=== PATIENT | female | born 1980 | race Caucasian/White ===

== ENCOUNTER 2018-01-22 02:50 | Outpatient (CLI) | payer MEDICAID ==
[2018-01-22] MEDS ORDERED: TERBUTALINE 1 ML (03:49)
[2018-01-22] MEDS: LACTATED RINGER'S 1,000 ML IV ×2 (03:57→06:52)
[2018-01-22] MEDS: TERBUTALINE 1 MG/ML INJ SC ×2 (03:57→04:56)
== END 2018-01-22 08:33 | disposition home or self-care (01) ==
LOC: OBT 02:50 → L-D 02:50 → OBT 08:33
DX: O62.9 Abnormality of forces of labor, unspecified (principal); O09.523 Supervision of elderly multigravida, third trimester; Z3A.37 37 weeks gestation of pregnancy
CPT/HCPCS: 36415; 96360; 96361; 96372

== ENCOUNTER 2018-02-06 05:00 | Inpatient (IN) | payer MEDICAID ==
[2018-02-06] MEDS ORDERED: OXYTOCIN 30 UNITS/LR 500 ML IV ×2 (06:00→14:30)
[2018-02-06] MEDS ORDERED: MISOPROSTOL 200 MCG TAB PR ×2 (06:00→14:30)
[2018-02-06] MEDS ORDERED: CARBOPROST 250 MCG INJ IM ×2 (06:00→14:30)
[2018-02-06] MEDS ORDERED: METHYLERGONOVINE 0.2 MG INJ IM ×2 (06:00→14:30)
[2018-02-06] MEDS ORDERED: CEFAZOLIN 2 GM/50 ML (PMX) 50 ML IV (06:00)
[2018-02-06] MEDS: LACTATED RINGER'S 1,000 ML IV ×4 (06:21→22:15)
[2018-02-06 06:48] LABS: ADD MAN DIFF? NO
[2018-02-06 06:55] LABS: BASOPHILS % 0.1 % (0.0-2.0); EOSINOPHILS % 0.4 % (0.0-7.0); HEMOGLOBIN 11.6 g/dl (12.0-16.0); LYMPHOCYTES # 1.5 10^3/ul (0.8-2.9); LYMPHOCYTES % 20.9 % (15.0-51.0); MEAN CORPUSCULAR HEMOGLOBIN 31.5 pg (29.0-33.0); MEAN CORPUSCULAR HGB CONC 34.1 g/dl (32.0-37.0); MEAN CORPUSCULAR VOLUME 92.4 fl (82.0-101.0); MEAN PLATELET VOLUME 11.1 fl (7.4-10.4); MONOCYTE # 0.5 10^3/ul (0.3-0.9); MONOCYTES % 7.6 % (0.0-11.0); NEUTROPHILS % 70.4 % (39.0-77.0); PLATELET COUNT 167 10^3/UL (140-415); RED BLOOD COUNT 3.68 10^6/ul (4.20-5.40); RED CELL DISTRIBUTION WIDTH 12.8 % (11.5-14.5)
[2018-02-06 06:55] LABS: WHITE BLOOD COUNT 7.1 10^3/ul (4.8-10.8)
[2018-02-06 07:08] LABS: INR 0.85; PROTIME 11.7 Sec (11.9-14.9); PT RATIO 0.9
[2018-02-06 07:09] LABS: PARTIAL THROMBOPLASTIN TIME 25.8 Sec (25.0-35.0)
[2018-02-06] MEDS: CITRIC ACID/SODIUM CITRATE 15 ML CUP PO (10:09)
[2018-02-06] MEDS: ONDANSETRON 4 MG INJ IV (10:09)
[2018-02-06] MEDS ORDERED: BUPIVACAINE 0.75%/DEXT (SPINAL) 2 ML INJ (10:48)
[2018-02-06] MEDS ORDERED: morphine SULFATE/PF (10 MG/10 ML) INJ (10:48)
[2018-02-06] MEDS ORDERED: OXYTOCIN 10 UNIT INJ (10:48)
[2018-02-06] MEDS ORDERED: METOCLOPRAMIDE 10 MG INJ (10:48)
[2018-02-06] MEDS ORDERED: FENTAnyl 50 MCG/ML VIAL (10:48)
[2018-02-06] MEDS ORDERED: MIDAZOLAM 1 MG/ML 2 ML INJ IV (11:30)
[2018-02-06] MEDS ORDERED: OXYCODONE/ACETAMINOPHEN (5/325) TAB PO ×2 (11:30)
[2018-02-06] MEDS ORDERED: IPRATROPIUM (NEB) 0.5 MG/2.5 ML AMP HHN (11:30)
[2018-02-06] MEDS ORDERED: HYDROmorphONE 1 MG/5 ML IV SYRINGE IV ×3 (11:30)
[2018-02-06] MEDS ORDERED: NALBUPHINE HCL (10 MG/1 ML) INJ IV (11:30)
[2018-02-06] MEDS ORDERED: FENTAnyl 50 MCG/ML VIAL IV ×3 (11:30)
[2018-02-06] MEDS ORDERED: NALOXONE (0.4 MG/ML) INJ IV (11:30)
[2018-02-06] MEDS ORDERED: MEPERIDINE 25 MG INJ IV (11:30)
[2018-02-06] MEDS ORDERED: EPHEDrine SULFATE 50 MG/5 ML SYG IV (11:30)
[2018-02-06] MEDS ORDERED: LABETALOL HCL 20MG INJ IV (11:30)
[2018-02-06] MEDS ORDERED: morphine 2 MG INJ IV (11:30)
[2018-02-06] MEDS ORDERED: ALBUTEROL 0.083% (NEB) 2.5 MG/3 ML AMP HHN (11:30)
[2018-02-06] MEDS ORDERED: DIPHENHYDRAMINE 50 MG INJ IV ×2 (11:30)
[2018-02-06] MEDS ORDERED: hydrALAzine 20 MG INJ IV (11:30)
[2018-02-06] MEDS ORDERED: TRIMETHOBENZAMIDE 100 MG/ML VIAL IM ×2 (11:30)
[2018-02-06] MEDS ORDERED: ONDANSETRON 4 MG INJ IV ×2 (11:30)
[2018-02-06] MEDS ORDERED: NACL 0.9% 3 ML SYG IV (14:30)
[2018-02-06] MEDS: KETOROLAC 30 MG INJ IV ×2 (14:56→23:56)
[2018-02-06] MEDS: OXYTOCIN 30 UNITS/LR 500 ML IV (15:00)
[2018-02-06 21:35] LABS: RAPID PLASMA REAGIN NONREACTIVE (NR)
[2018-02-07] MEDS: LACTATED RINGER'S 1,000 ML IV ×3 (03:26→22:15)
[2018-02-07] MEDS: LANOLIN 7 GM TUBE TOP (05:19)
[2018-02-07] MEDS: morphine 2 MG INJ IV (05:19)
[2018-02-07 11:07] LABS: ADD MAN DIFF? NO
[2018-02-07 11:13] LABS: WHITE BLOOD COUNT 8.6 10^3/ul (4.8-10.8)
[2018-02-07 11:13] LABS: BASOPHILS % 0.2 % (0.0-2.0); EOSINOPHILS % 0.1 % (0.0-7.0); HEMATOCRIT 28.9 % (37.0-47.0); HEMOGLOBIN 9.8 g/dl (12.0-16.0); LYMPHOCYTES # 0.8 10^3/ul (0.8-2.9); LYMPHOCYTES % 9.2 % (15.0-51.0); MEAN CORPUSCULAR HEMOGLOBIN 31.3 pg (29.0-33.0); MEAN CORPUSCULAR HGB CONC 33.9 g/dl (32.0-37.0); MEAN CORPUSCULAR VOLUME 92.3 fl (82.0-101.0); MEAN PLATELET VOLUME 10.6 fl (7.4-10.4); MONOCYTE # 0.4 10^3/ul (0.3-0.9); MONOCYTES % 4.5 % (0.0-11.0); NEUTROPHIL # 7.4 10^3/ul (1.6-7.5); NEUTROPHILS % 85.5 % (39.0-77.0); PLATELET COUNT 143 10^3/UL (140-415); RED BLOOD COUNT 3.13 10^6/ul (4.20-5.40); RED CELL DISTRIBUTION WIDTH 12.8 % (11.5-14.5)
[2018-02-07] MEDS: KETOROLAC 30 MG INJ IV (11:15)
[2018-02-07] MEDS: IBUPROFEN 800 MG TAB PO ×2 (17:40→21:55)
[2018-02-08] MEDS: HYDROCODONE/APAP (5/325) TAB PO ×2 (04:40→12:52)
[2018-02-08] MEDS: IBUPROFEN 800 MG TAB PO ×3 (06:00→21:54)
[2018-02-08] MEDS: LACTATED RINGER'S 1,000 ML IV ×3 (06:15→22:15)
[2018-02-08] MEDS: NA PHOSPHATE/BIPHOS 133 ML ENEMA PR (09:54)
[2018-02-09] MEDS: HYDROCODONE/APAP (5/325) TAB PO (01:00)
[2018-02-09] MEDS: IBUPROFEN 800 MG TAB PO (06:03)
[2018-02-09] MEDS: LACTATED RINGER'S 1,000 ML IV (06:15)
[2018-02-09] MEDS: DIPHTH/TET/ACEL PERTUSS (ADULT) 0.5 ML VIAL IM* (09:00)
[2018-02-09] MEDS: MEASLES,MUMPS,RUBELLA VACCINE INJ SC* (09:00)
== END 2018-02-09 15:12 | disposition home or self-care (01) | DRG 766 ==
LOC: L-D 05:00 → PP1 14:27
PROVIDERS: Obstetrics & Gynecology
PROC: 10D00Z1 Extraction of Products of Conception, Low, Open Approach (ICD-10-PCS; principal; 2018-02-06 11:00)
PROC: 0UB70ZZ Excision of Bilateral Fallopian Tubes, Open Approach (ICD-10-PCS; 2018-02-06 11:00)
DX: O34.219 Maternal care for unspecified type scar from previous cesarean delivery (principal); Z37.0 Single live birth; Z30.2 Encounter for sterilization; Z3A.39 39 weeks gestation of pregnancy; O90.81 Anemia of the puerperium
CPT/HCPCS: 85025; 85610; 85730; 86592; 86850; 86900; 86901; 88302; 99464